=== PATIENT | male | born 1985 | race Hispanic/Latino ===

== ENCOUNTER → 2020-01-07 | Outpatient (CLI) | payer BC | END | disposition home or self-care (01) | LOC: RAH 13:12 | PROVIDERS: ATTEND Family Medicine | DX: Z00.00 Encounter for general adult medical examination without abnormal findings (principal); R07.9 Chest pain, unspecified; K21.9 Gastro-esophageal reflux disease without esophagitis; J45.909 Unspecified asthma, uncomplicated | CPT/HCPCS: 71046 ==